=== PATIENT | male | born 1965 | race Caucasian/White ===

== ENCOUNTER → 2020-10-27 12:16 | Outpatient (CLI) | payer BC, SELFPAY ==
--- NOTE | ~2020-10-27 | CT_ITS ---
EXAMINATION: CT abdomen pelvis w con DATE: 10/27/2020 12:46 INDICATION: Bilateral flank pain. Low back pain. TECHNIQUE: Computed tomography (CT) of the abdomen and pelvis was performed with 100 mL Omnipaque 350 intravenous contrast. Automated exposure control and iterative reconstruction technique were employe d. The dose-length product was 865.34 mGy-cm. COMPARISON: None. FINDINGS: The visualized portions of the lung bases demonstrate a calcified nodule in right middle lo be, consistent with old granulomatous disease. No pleural effusion. The heart size is normal. No trey cardial effusion. The liver, gallbladder, spleen, pancreas, adrenal glands, and kidneys are normal. T he prostate is mildly enlarged. There are no dilated loops of bowel. The appendix is normal. There ar e no pathologically enlarged lymph nodes. There is no free intraperitoneal fluid. There is severe deg enerative disc disease at L4-L5. IMPRESSION: 1. Severe lumbar spondylosis. Reviewed, dictated and finalized at location A. CAD DRAFTSMAN
[2020-10-28 11:24] LABS: Estimated Glomerular Filt Rate > 60
== END ==
DX: M54.42 Lumbago with sciatica, left side (principal); M54.41 Lumbago with sciatica, right side; G89.29 Other chronic pain; M47.896 Other spondylosis, lumbar region
CPT/HCPCS: 74177; Q9967

== ENCOUNTER 2023-03-21 16:49 | Emergency (ER) | payer BC, SELFPAY ==
[2023-03-21 17:00] VITALS: BP 139/72; PULSE 88; RESP 18; TEMP 37.5; O2SAT 98
--- NOTE | 2023-03-21 17:25 | ED.URI ---
HPI - URI/Sore Throat General Chief Complaint: Upper Respiratory Infection Stated Complaint: cough Time Seen by Provider: 03/21/23 17:25 Source: patient, RN notes reviewed and old records reviewed Mode of arrival: ambulatory Limitations: no limitations History of Present Illness HPI Narrative: 58-year-old male presents to the [facility] with 2-3 weeks cough, chest congestion. Has taken [id number] products with no relief. Denies any fevers. No history of asthma or COPD. Has a history of hypertension Onset (ago): week(s) (2-3) Related Data Home Medications Medication Instructions Recorded Confirmed amlodipine 10 mg tablet 10 mg PO DAILY 03/21/23 03/21/23 lisinopril 20 1 tablet PO DAILY 03/21/23 03/21/23 mg-hydrochlorothiazide 12.5 mg tablet metoprolol succinate 25 mg 25 mg PO DAILY 03/21/23 03/21/23 tablet,extended release 24 hr Allergies Allergy/AdvReac Type Severity Reaction Status Date / Time doxycycline Allergy Other Verified 03/21/23 17:28 Review of Systems Review of Systems: All systems reviewed & are unremarkable except as noted in HPI and below Constitutional: Constitutional: Reports no additional constitutional complaints Eyes: Eyes: Reports no additional eye complaints ENT: Reports as per HPI Cardiovascular: Cardiovascular: Reports no additional cardiovascular complaints, Denies chest pain and Denies dyspnea Respiratory: Respiratory: Reports as per HPI, Reports chest congestion, Reports cough and Denies dyspnea Gastrointestinal: Gastrointestinal: Reports no additional gastrointestinal complaints, Denies abdominal pain, Denies nausea and Denies vomiting Musculoskeletal: Musculoskeletal: Reports no additional musculoskeletal complaints Integumentary/Breasts: Skin/Breast: Reports system reviewed and no additional complaints, except as docu Neurologic: Reports system reviewed and no additional complaints, except as documented Psychiatric: Psychiatric: Reports no additional psychiatric complaints Allergic/Immunologic: Allergic/Immunologic: Reports no additional allergic/immunologic complaints PMFSH Past Medical History Medical History Hypertension Comments At the time of my signature, I reviewed and agree with the nursing past medical, surgical, social, and family history. There is no relevant family history pertinent to the patient complaint. Exam Const: General: cooperative, healthy appearing, comfortable, no acute distress, well developed, alert and well nourished Nutritional Appearance: well nourished Orientation/consciousness: patient oriented x3 Limitations: no limitations HENMT: Head: normal to inspection Ears: hearing grossly normal bilaterally and external ears normal Face/Nose/Sinus: Normal external nose present, Normal nares present, Normal nasal mucous membranes and turbinates present and normal facial exam Face and sinus: normal facial exam Mouth: Yes Normal oral and palatal mucosa present, Yes lip normal and Yes moist mucous membranes Throat: posterior oropharynx normal and uvula midline Eyes: General: appearance normal, both eyes and all related structures Alignment and Position: alignment normal Periorbital: periorbital findings normal Conjunctivae: conjunctivae normal Pupils: Equal, round and reactive pupils present EOM: EOMs intact bilaterally Neck: Neck: normal visual inspection, full ROM, no lymphadenopathy and no meningeal signs Chest: Chest palpation & inspection: normal inspection of the chest Resp: Effort & Inspection: normal respiratory effort and able to speak in complete sentences Auscultation: no crackles, no rales, no rhonchi and wheezes expiratory wheezes (And expiratory bilateral lower) Cardio: Rate: regular rate Rhythm: regular rhythm Back/Spine/Pelvis: Cervical Spine: cervical ROM normal Thoracic/Lumbar Spine: No thoracic spinal tenderness Skin: General skin exam: normal color
== END 2023-03-21 17:38 | disposition home or self-care (01) ==
PROVIDERS: Emergency Provider Nurse Practitioner
DX: J40 Bronchitis, not specified as acute or chronic (principal); I10 Essential (primary) hypertension
CPT/HCPCS: 99213; G0463

== ENCOUNTER 2023-12-15 00:41 | Inpatient (IN) | payer BC, SELFPAY ==
[2023-12-15] VITALS (24 sets, daily range): BP systolic 114–161; BP diastolic 54–81; PULSE 96–115; RESP 15–25; TEMP 36.3–37.2; O2SAT 89–98
--- NOTE | ~2023-12-15 | XR_ITS ---
Clinical Indication: Cough PA and lateral views of the chest: Comparison: None Findings: Calcified right upper lobe and right lower lobe granulomas are present. The lungs are other milligan clear, without evidence of focal consolidation or pleural effusion. Cardiomediastinal silhouett e is within normal limits. Bones and soft tissues are unremarkable. Impression: No acute abnormality. Calcified granulomas. Reviewed, dictated and finalized at [facility]. [facility] Impression: No acute abnormality. Calcified granulomas.
--- NOTE | ~2023-12-15 | CT_ITS ---
EXAMINATION:CT diagnostic chest wo con DATE: 12/16/2023 15:34 INDICATION: Hypoxia. Eosinophilia. TECHNIQUE: Computed tomography (CT) of the chest was performed without intravenous contrast. Automate d exposure control and iterative reconstruction technique were employed. The dose-length product (DLP ) was 337.82 mGy-cm. COMPARISON: CT abdomen and pelvis 10/27/2020 FINDINGS: Calcified right lung nodules and calcified right hilar and mediastinal lymph nodes are cons istent with old granulomatous disease. There is mild atelectasis bilaterally. No pleural effusion. Th e heart size is normal. There are coronary artery calcifications. No pericardial effusion. There is b ilateral gynecomastia. There is mild thoracic spondylosis. IMPRESSION: 1. No etiology for the patient's symptoms. Reviewed, dictated and finalized at location A. ATION AND PATROL AGENT
--- NOTE | 2023-12-15 00:48 | ECG_ITS ---
Measurements Intervals [place] Rate: P: DC: QRS: QRSD: T: QT: QTc: Interpretive Statements SINUS TACHYCARDIA LOW-VOLTAGE QRS BORDERLINE ECG Electronically Signed On 12-16-2023 13:55:42 [employer] PRESIDENT [employer] by Ermias Crespo M.D.
[2023-12-15 01:04] LABS: Basophils Absolute Auto 0.2 K/mm3 (0.0-0.1); Basophils Percent Auto 1.4 % (0.2-1.2); Eosinophils Absolute Auto 1.3 K/mm3 (0-0.3); Eosinophils Percent Auto 8.9 % (0-4.4); Hematocrit 45.9 % (42.0-52.0); Hemoglobin 15.7 g/dL (14.0-18.0); Immature Granulocyte Absolute 0.13 K/mm3 (0.00-0.031); Immature Granulocyte Percent A 0.9 % (0-0.5); Lymphocytes Absolute Auto 3.82 K/mm3 (0.9-3.2); Lymphocytes Percent Auto 25.8 % (18.3-44.2); Mean Corpuscular HGB Conc 34.2 g/dl (32-36); Mean Corpuscular Hemoglobin 29.9 pg (26-34); Mean Corpuscular Volume 87.4 fl (80-100); Mean Platelet Volume 8.9 fl (7.4-10.4); Monocytes Absolute Auto 1.7 K/mm3 (0.1-0.6); Monocytes Percent Auto 11.4 % (2.6-8.5); Neutrophils Absolute Auto 7.6 K/mm3 (1.3-6.7); Neutrophils Percent Auto 51.6 % (45.5-73.1); Platelet Count Result 265 k/mm3 (150-375); Red Blood Count 5.25 M/mm3 (4.6-6.20); Red Cell Distribution Width 12.2 % (11.5-14.5); White Blood Count 14.8 K/mm3 (4.5-10.0)
[2023-12-15 01:19] LABS: Chloride 103 mmol/L (98-107); Potassium 3.3 mmol/L (3.4-5.0); Sodium 139 mmol/L (137-145)
[2023-12-15 01:20] LABS: Alanine Aminotransferase 38 U/L (6-50); Albumin Level 4.4 g/dL (3.5-5.1); Alkaline Phosphatase 70 U/L (38-126); Anion Gap 10 mmol/L (8-16); Aspartate Amino Transferase 27 U/L (17-59); Bilirubin,Total 1.1 mg/dL (0.2-1.3); Blood Urea Nitrogen 15 mg/dL (9-20); Calcium 9.8 mg/dL (8.4-10.2); Carbon Dioxide 26 mmol/L (22-30); Estimated CRCL calculation 81 ml/min; Estimated Glomerular Filt Rate > 60; Glucose 111 mg/dL (65-110)
[2023-12-15] MEDS: IPRATROPIUM BR 0.02% INH SOLN 0.5 MG/2.5 ML VIAL 1 MG INHALATION (02:28)
[2023-12-15] MEDS: ALBUTEROL SULFATE NEB 2.5 MG/3 ML INH 10 MG INHALATION (02:28)
[2023-12-15] MEDS: MAGNESIUM SULF 2 GM/WATER 50ML 2 GM/50 ML BAG IVPB (02:39)
[2023-12-15 03:02] LABS: NT Pro B Type Natriuretic Pept < 20 pg/mL (19.9-100)
[2023-12-15] MEDS: SODIUM CHLORIDE 0.9% IV 2,000 ML 999 ML IV CONT (03:06)
[2023-12-15] MEDS: KETOROLAC 15 MG/ML VIAL (*BKC) IV PUSH (03:07)
[2023-12-15] MEDS: guaiFENesin/DEXTROMETHORPHAN 10 ML UDC PO (03:07)
[2023-12-15] MEDS: ACETAMINOPHEN 500 MG TABLET 1000 MG PO (03:07)
--- NOTE | 2023-12-15 03:29 | ED.GENADULT ---
HPI - General Adult General Chief complaint: Shortness of Breath/Dyspnea Stated complaint: sob Time Seen by Provider: 12/15/23 01:34 History of Present Illness HPI narrative: This is a 58-year-old male presenting ED with a chief complaint of shortness of breath. Patient has had a dry cough for approximately 10 days. Over last 3 days it has gotten significantly worse. He is now having significant shortness of breath and wheezing. Patient has been having coughing fits during this time as well. no fevers chills chest pain body aches abdominal pain or urinary symptoms. No history of COPD. Used to be heavy smoker but quit 16 years ago. 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 Related Data Home Medications Medication Instructions Recorded Confirmed amlodipine 10 mg tablet 10 mg PO DAILY 03/21/23 12/15/23 lisinopril 20 1 tablet PO DAILY 03/21/23 12/15/23 mg-hydrochlorothiazide 12.5 mg tablet metoprolol succinate 25 mg 25 mg PO DAILY 03/21/23 12/15/23 tablet,extended release 24 hr pantoprazole 40 mg tablet,delayed mg PO 12/15/23 12/15/23 release Allergies Allergy/AdvReac Type Severity Reaction Status Date / Time doxycycline Allergy Unknown Hives Verified 12/15/23 03:45 [facility] Past Medical History Medical History Hypertension Exam Narrative: APPEARANCE: appears unwell Head: atraumatic. EYES: EOMI, NOSE: Atraumatic NECK: Trachea midline RESPIRATORY: Tachypneic, wheezing bilaterally, cough CARDIOVASCULAR: RRR, no peripheral edema ABDOMINAL: Non-distended MUSCULOSKELETAl: No obvious deformities NEURO: Alert. Moving 4/4 extremities SKIN:: Warm, dry. Normal color PSYCHIATRIC: Normal affect Course Vital Signs Vital signs: Vital Signs Temperature 97.8 F 12/15/23 00:40 Pulse Rate 109 H 12/15/23 00:40 Respiratory Rate 25 H 12/15/23 00:40 Blood Pressure 155/81 H 12/15/23 00:40 Pulse Oximetry 93 12/15/23 00:40 Oxygen Delivery Room Air 12/15/23 00:40 Temperature 97.8 F 12/15/23 00:40 Pulse Rate 108 H 12/15/23 04:09 Respiratory Rate 15 12/15/23 04:09 Blood Pressure 124/57 L 12/15/23 04:09 Pulse Oximetry 95 12/15/23 04:21 Oxygen Delivery Nasal Cannula 12/15/23 04:21 Oxygen Flow Rate 5 12/15/23 04:21 Medical Decision Making MDM Narrative Medical decision making narrative: -Course: 50-year-old male presenting with 10 days of cough that has gotten markedly worse over the last 3 days. He has diffuse wheezing on exam and is hypoxic on room air. Placed on 2 L [id number] given a breathing treatment magnesium and dexamethasone. White count elevated at 14.8. x-ray did not reveal any significant infiltrates but given his presentation and concern for secondary pneumonia. Patient be started on ceftriaxone and azithromycin. Patient will be admitted to the hospital for further management. 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 -Discussion of Management/Consultants: Vikash.-hospitalist -Interventions: DuoNeb treatment, steroids, magnesium, Toradol/Tylenol/ Robitussin, 40 mEq potassium ceftriaxone, azithromycin -Shared decision making / Disposition: admitted Vital Signs Vital Signs: Vital Signs Temperature 97.8 F 12/15/23 00:40 Pulse Rate 109 H 12/15/23 00:40 Respiratory Rate 25 H 12/15/23 00:40 Blood Pressure 155/81 H 12/15/23 00:40 Pulse Oximetry 93 12/15/23 00:40 Oxygen Delivery Room Air 12/15/23 00:40 Temperature 97.8 F 12/15/23 00:40 Pulse Rate 108 H 12/15/23 04:09 Respiratory Rate 15 12/15/23 04:09 Blood Pressure 124/57 L 12/15/23 04:09 Pu
[2023-12-15] MEDS: POTASSIUM CHLORIDE 20 MEQ PACKET (FOR LIQUID) 40 MEQ PO (03:51)
[2023-12-15 04:03] LABS: Influenza A QL RT-PCR Negative (Negative); Influenza B QL RT-PCR Negative (Negative); RSV RNA, RT-PCR Negative (Negative); SARS-CoV-2 RNA PCR Negative (Negative)
[2023-12-15] MEDS: AZITHROMYCIN 500 MG/NS 250 ML 500 MG/250 ML BAG 250 MG IVPB (05:09)
[2023-12-15] MEDS: methylPREDNISolone SOD SUCC 125 MG VIAL 60 MG IV PUSH ×4 (06:07→23:18)
[2023-12-15] MEDS: IPRATROPIUM 0.5 MG/ALBUTEROL SULFATE 2.5 MG AMPUL.NEB 3 ML INHALATION (07:45)
--- NOTE | 2023-12-15 08:44 | PM.IMHP ---
H&P: HPI History of Present Illness Date/Time: 12/15/23 08:44 Chief Complaint: Shortness of breath and cough Narrative: 58yo male with HTN here for shortness of breath and cough. Patient over the past 5 months has had 3 episodes of respiratory illnesses mostly with sinus drainage. He has been on antibiotics and steroids. Was also given albuterol MDI. He notices quick improvement with steroids. He does have a history of tobacco use smoking up to 3 packs per day for 25 years. He quit tobacco in 2007. He does not have history of asthma or COPD. Patient was doing well until about 10-11 days prior to this admission when he developed a cough that is mostly nonproductive. When it was productive, he would expectorate dark brown or banuelos colored sputum. No hemoptysis but he states he can taste blood?. He says it tastes ?salty? but not metallic. No fever or chills. No chest pain but he does have chest wall and abdominal pain from the persistent cough. He is having coughing jags with associated headache and post tussive dry heaving. No nausea. He has had decreased appetite. No diarrhea. No dysuria or hematuria. No pedal edema or calf pain. Not sure he has lost weight. He has been wheezing. He has tried humidity such as steam and hot showers. He did go to an urgent care center about 10 days ago and was treated with amoxicillin and Tessalon Perles. He has also been on Mucinex scheduled as well. There was only minimal benefit with this regimen. Today is his last day of amoxicillin. He has postnasal drainage but no sore throat, vision changes, hearing changes, ear pain, odynophagia or dysphagia. He has been feeling lethargic as well. Because of the worsening shortness of breath and cough, patient presented to the emergency room for evaluation. In the emergency room, was mildly tachycardic of 109 the respiratory 25. Was 93% on room air but dropped to 89%. He was treated with albuterol 10 mg neb, Atrovent and Decadron. He is also on magnesium. Blood cultures collected. Chest x-ray showed no acute abnormalities. White count was 15 K with eosinophilia. Potassium was low at 3.3 otherwise CMP was normal. BNP was less than 20. Influenza, RSV and COVID PCR were negative. He was started on antibiotics for possible pneumonia. He was switched to Solu-Medrol. He was admitted for further care. Review of Systems Review of Systems: All systems reviewed & are unremarkable except as noted in HPI and below PMFSH Past Medical History Medical History (Updated 12/15/23 @ 09:03 by Thomas Mcnamara MD) Hypertension Surgical History Surgical History (Updated 12/15/23 @ 08:56 by Thomas Mcnamara MD) Hx of percutaneous left heart catheterization Clear [facility] Jul 2020 Family History Family History (Updated 12/15/23 @ 08:57 by Thomas Mcnamara MD) Mother Brain aneurysm Breast cancer Cardiomyopathy Other Crohn disease Social History Social History (Updated 12/15/23 @ 08:58 by Thomas Mcnamara MD) Social History: 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 Lives at home with his . No pets. No exposure to birds. He rarely drinks alcohol. He does smoke marijuana a few times a year. He is a full code. He nominates his to be the individual to make medical decisions for him if he is unable. Meds Home Medications and Allergies Home Medications Medication Instructions Recorded Confirmed Type albuterol sulfate 90 mcg/actuation 2 puff inhalation QID PRN 03/21/23 Rx aerosol inhaler shortness of breath or wheezing #6.7 grams amlodipine 10 mg tablet 10 mg PO DAILY 03/21/23 12/15/23 History azithromycin 250 mg tablet See Rx Instructions PO .COMPLEX #6 03/21/23 Rx tabs inhalational spacing device (Space #1 ea 03/21/23 Rx Chamber) lisinopril 20 1 tablet PO DAILY 03/21/23 12/15/23 History mg-hydrochlorothiazide 12.5 mg tablet metoprolol succinate 25 mg 25 mg PO DAILY 03/21/23 12/15/23 Hist
--- NOTE | 2023-12-15 08:50 | ADMGEN ---
This patient, Ermias Lopez, was admitted to [facility] Surg Room 314-02. Patient/family oriented to hospital policies and general routines including ID bracelet, bed and alarms, visiting hours, pain management, procedures, bathroom and other care routines, personal items, smoking policy, room service/diet, and visiting hours. Information on how to activate the Rapid Response Team has been discussed. Patient/Family are encouraged to report perceived risks to care and to ask questions if they do not understand what they are told or what they should do.
[2023-12-15] MEDS: dilTIAZem HCL 30 MG TABLET PO ×3 (12:50→23:18)
[2023-12-15] MEDS: ASPIRIN 81 MG ENTERIC TABLET PO (12:57)
[2023-12-15] MEDS: polyethylene glycoL 3350 17 GM POWD.PACK PO (19:00)
[2023-12-15] MEDS: LEVALBUTEROL NEB 1.25 MG/3 ML INHALATION (22:02)
[2023-12-16] VITALS (18 sets, daily range): BP systolic 138–171; BP diastolic 59–81; PULSE 82–111; RESP 16–20; TEMP 36.4–37.2; O2SAT 91–97
[2023-12-16] MEDS: AZITHROMYCIN 500 MG/NS 250 ML 500 MG/250 ML BAG 250 MG IVPB (05:35)
[2023-12-16] MEDS: dilTIAZem HCL 30 MG TABLET PO ×2 (05:36→11:57)
[2023-12-16] MEDS: methylPREDNISolone SOD SUCC 125 MG VIAL 60 MG IV PUSH (05:36)
[2023-12-16 06:44] LABS: Basophils Absolute Auto 0.1 K/mm3 (0.0-0.1); Basophils Percent Auto 0.3 % (0.2-1.2); Eosinophils Percent Auto 0.1 % (0-4.4); Hematocrit 41.6 % (42.0-52.0); Hemoglobin 14.3 g/dL (14.0-18.0); Immature Granulocyte Absolute 0.31 K/mm3 (0.00-0.031); Immature Granulocyte Percent A 1.3 % (0-0.5); Lymphocytes Absolute Auto 2.14 K/mm3 (0.9-3.2); Lymphocytes Percent Auto 8.6 % (18.3-44.2); Mean Corpuscular HGB Conc 34.4 g/dl (32-36); Mean Corpuscular Hemoglobin 30.4 pg (26-34); Mean Corpuscular Volume 88.5 fl (80-100); Mean Platelet Volume 8.9 fl (7.4-10.4); Monocytes Absolute Auto 0.9 K/mm3 (0.1-0.6); Monocytes Percent Auto 3.8 % (2.6-8.5); Neutrophils Absolute Auto 21.3 K/mm3 (1.3-6.7); Neutrophils Percent Auto 85.9 % (45.5-73.1); Platelet Count Result 253 k/mm3 (150-375); Red Cell Distribution Width 12.4 % (11.5-14.5); White Blood Count 24.8 K/mm3 (4.5-10.0)
[2023-12-16 06:52] LABS: Anion Gap 9 mmol/L (8-16); Blood Urea Nitrogen 12 mg/dL (9-20); Carbon Dioxide 24 mmol/L (22-30); Chloride 107 mmol/L (98-107); Estimated CRCL calculation 102 ml/min; Estimated Glomerular Filt Rate > 60; Glucose 147 mg/dL (65-110); Magnesium 2.6 mg/dL (1.6-2.3); Potassium 4.2 mmol/L (3.4-5.0); Sodium 140 mmol/L (137-145)
[2023-12-16] MEDS: LEVALBUTEROL NEB 1.25 MG/3 ML INHALATION ×3 (09:14→20:07)
[2023-12-16] MEDS: ASPIRIN 81 MG ENTERIC TABLET PO (09:16)
[2023-12-16] MEDS: polyethylene glycoL 3350 17 GM POWD.PACK PO (09:16)
--- NOTE | 2023-12-16 10:46 | ECHO_ITS ---
Patient Info Name: Ermias Lopez Age: 58 years : 1965 Gender: Male Ht: 65 in Wt: 199 lbs BSA: 2.07 m2 HR: 95 bpm BP: 138 / 73 mmHg Heart Rhythm: Sinus Rhythm Technical Quality: Fair Exam Date: 12/16/2023 1:21 PM Exam Location: Echo Lab Patient Status: Inpatient Admit Date: 12/15/2023 Staff Ordering Physician: Ermias Santiago MD General Agent: Leonarda Cruz RDCS Attending Provider: Raisa Suh MD Referring Physician: Jack GONZALEZ; Exam Type: CA echo doppler color flow Study Info Indications R06.02 - Shortness of breath Complete two-dimensional, color flow and Doppler transthoracic echocardiogram is performed. Summary 1. Complete two-dimensional, color flow and Doppler transthoracic echocardiogram is performed. 2. Left ventricular chamber dimension is normal. 3. Left ventricular systolic function is hyperdynamic, estimated at >70%. 4. The left ventricular diastolic function is abnormal. 5. E/e' 11 is mildly elevated. 6. There is trace tricuspid valve regurgitation. 7. No pulmonary hypertension, estimated pulmonary arterial systolic pressure is 29 mmHg. Left Ventricle E/e' 11 is mildly elevated. Left ventricular chamber dimension is normal. Left ventricular systolic function is hyperdynamic, estimated at >70%. The left ventricular diastolic function is abnormal. Right Ventricle Right ventricular systolic function is normal and with normal TAPSE 2.9 cm. Right ventricular chamber dimension is normal. Left Atria Left atrial chamber dimension is normal. Right Atria Right atrial chamber dimension is normal. Aortic Valve The aortic valve is trileaflet. There is no aortic valve stenosis. There is no aortic valve regurgitation. Pulmonic Valve There is no pulmonic regurgitation. Mitral Valve There is no mitral valve stenosis. There is no mitral valve regurgitation. Tricuspid Valve There is trace tricuspid valve regurgitation. No pulmonary hypertension, estimated pulmonary arterial systolic pressure is 29 mmHg. Pericardium/Pleural There is no pericardial effusion. Inferior Vena Cava Normal inferior vena cava with >50% collapse upon inspiration consistent with normal right atrial pressure, 5 mmHg. Aorta The aortic root size at the sinus of Valsalva is normal. Left Ventricular Outflow Tract Name Value Normal LVOT 2D LVOT Diameter 2.0 cm LVOT Doppler LVOT Peak Gradient 8 mmHg LVOT Mean Gradient 4 mmHg LVOT VTI 24 cm LVOT VTI/AV VTI Ratio 0.8 LVOT Stroke Volume 75 ml LVOT CO 17.7 l/min LVOT CI 8.6 l/min/m2 Pulmonic Valve Name Value Normal RVOT Doppler RVOT Peak Gradient 6 mmHg PV Doppler PV Peak
--- NOTE | 2023-12-16 11:13 | PM.CNPUL ---
Assessment and Plan Assessment and plan (1) Reactive airway disease with acute exacerbation: Code(s): J45.901 - Unspecified asthma with (acute) exacerbation Status: Acute Assessment and Plan: Patient has a 75 pack year tobacco use, quit in 2008, respiratory illnesses associated with fatigue, cough, sputum production, shortness of breath in September, 12 and this episode currently. Episodes have responded to antibiotics and steroids and he makes a near complete recovery between these episodes. Admitted now with hypoxia requiring up to 5 L nasal cannula, clear chest x-ray, eosinophil count of 1326 per micro L, and is 50% back to normal after 36 hours of steroids, 1 dose of ceftriaxone and azithromycin. His D-dimer is negative. COVID, influenza and RSV RT PCR studies are negative. Etiology of patient's recurrent episodes include asthma, reactive airways disease, COPD, viral bronchiolitis, bronchiectasis, and or eosinophilic lung disease. Doubt cardiac abnormalities Plan: I will obtain a CT scan of the chest without contrast looking for evidence of emphysema, bronchiectasis or eosinophilic lung disease. I will order an extended respiratory pathogen panel. Patient has previously had a cardiac workup that he tells me is negative. I will obtain an echocardiogram to assess LV function, RV function, pulmonary pressures and valvular function. I will decrease his Solu-Medrol to 20 mg IV q.6. The patient tells me that levalbuterol 1.2 5q6 has helped him and I will continue this. Agree with azithromycin pending cultures, day 2. Serum Aspergillus serologies have been sent and I will order immunoglobulins and total IgE level The patient does have loud snoring, hypertension, fatigue and may have obstructive sleep apnea. I will order an overnight oximetry to assess his oxygen at night. He will need an outpatient sleep study. Discussed with Dr. Mcnamara, will follow with you. History of Present Illness History of Present Illness Consult date: 12/16/23 Chief complaint: Resp Failure Narrative: 12/16/2023: This is a new pulmonary consult for hypoxemia and eosinophilia. 58-year-old with a history of hypertension and recurrent bouts of bronchitis. Patient had no respiratory limitations in his life until July of 2020 when he developed fatigue at work with shortness of breath and had a cardiac workup with a negative cardiac catheterization. He was started on no medicines at that time. He says his shortness of breath improved but he remained fatigue since then. 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 He would then lift weights and then walk 2 miles an hour. He had no respiratory limitations in his activities of daily living. In June the patient developed fatigue, cough, banuelos sputum and shortness of breath. He went to an urgent care and was treated with erythromycin over the next 7 days he recovered to 95% back to his normal expected except for feeling fatigued. The patient recovered and went back to work and he retired on August 14, 2023. In September of 2023 he developed fatigue, cough, sputum production and shortness of breath and he went to urgent care and received a Z-Ephraim and steroids. He again made a complete recovery over the next week and was back to his baseline except for fatigue. On 11/02/2023 he developed cough, shortness of breath, phlegm production with continued fatigue. He got no medical treatment. His tested COVID positive on 11/12 and at that time he tested COVID negative. He does not know if he had COVID initially. Patient was in his usual state of health until December 03 2023 when he developed cough, dark banuelos phlegm, rest and exertional shortness of breath. He denied fever, chills, rigors. On 12/06/2023 he went to Urgent Care a
[2023-12-16] MEDS: methylPREDNISolone SOD SUCC 40 MG VIAL 20 MG IV PUSH ×2 (11:57→18:32)
--- NOTE | 2023-12-16 12:35 | PM.IMPN ---
Progress Note: A&P Assessment and Plan (1) Hypoxia: Code(s): R09.02 - Hypoxemia Status: Acute Assessment and Plan: Patient presents to the ED complaints of shortness of breath and cough. Not hypoxic initially on admission but developed hypoxia probably related to V/Q mismatch after nebulizer treatments. CXR clear. 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 His symptoms appear to have started sometime in the fall. He does have eosinophilia which would suggest that he has developed asthma type disorder. Tachycardia noted on admission but probably persistent because of his albuterol treatment. Hypoxia much better. Continue steroids and nebulizer treatments. Pulm consult and appreciate their input. Discussed Echo and CT chest ordered. (2) Reactive airway disease with acute exacerbation: Code(s): J45.901 - Unspecified asthma with (acute) exacerbation Status: Acute Assessment and Plan: As above. Patient with possible asthma/COPD overlap syndrome. Doubtful he has pneumonia given that he was on amoxicillin for almost 10 days prior to admission and chest x-ray is clear. Rocephin stopped but azithromycin continued to cover for atypicals. WBC 14.8K but higher now at 24.8K felt related to steroids. Continue nebulizer treatments and steroids. (3) Eosinophilia: Code(s): D72.10 - Eosinophilia, unspecified Status: Acute Assessment and Plan: Eosinophil count was 1300. Again most likely related to new onset asthma. Consider eosinophilic PNA but no infiltrates by CXR Patient was started on steroids. Check for ABPA. Check IgE level. CT of chest ordered. Check for pertussis. Eosinophilia has resolved as expected and symptoms much better Most likely need home maintenance inhalers at discharge. (4) Hypertension: Code(s): I10 - Essential (primary) hypertension Status: Acute Assessment and Plan: Patient with HTN. Reviewed home medications He is on a beta-aramis which could be contributing to his worsening asthmatic symptoms so held. Lisinopril can also cause chronic cough so also held. Started diltiazem and tolerating this well and BP stable. Follow Plan DVT prophylaxis -Lovenox Code status -full Subjective Date/time seen: 12/16/23 12:35 Interval history: 58yo male with HTN here for shortness of breath and cough.?? Patient weaned off O2 today. He feels much better. Cough better. No Cp. Exam Narrative: AF 97.5 138/73 95 20 97% 3L (on RA at the time of my visit) Gen - NARD walking around the room Chest - few faint scattered rhonchi, nml RR CV - RRR. S1-S2. Tele showing no significant dysrhythmias Abd - soft, NT/ND, +BS Ext - no pedal edema Psych - normal mood and affect. Skin - warm and dry. Objective Data Vital Signs Vital Signs: Vital Signs - 24 hr 12/15/23 13:10 12/15/23 13:20 12/15/23 15:41 Temperature Pulse Rate 106 H 100 Respiratory Rate 18 18 Blood Pressure Pulse Oximetry 94 Oxygen Delivery Nasal Cannula Oxygen Flow Rate 5 12/15/23 17:53 12/15/23 16:00 12/15/23 21:23 Temperature 98.9 F 98.1 F Pulse Rate 110 H 114 H 109 H Respiratory Rate 17 20 Blood Pressure 152/68 H 161/74 H Pulse Oximetry 96 97 Oxygen Delivery Oxygen Flow Rate 12/15/23 22:02 12/15/23 20:00 12/16/23 00:00 Temperature Pulse Rate 97 103 H 100 Respiratory Rate 18 Blood Pressure Pulse Oximetry Oxygen Delivery Oxygen Flow Rate 12/15/23 20:00 12/16/23 04:00 12/16/23 06:22 Temperature Pulse Rate 100 88 88 Respiratory Rate 18 18 Blood Pressure Pulse Oximetry 97 97 Oxygen Delivery Nasal Cannula Nasal Cannula Oxygen Flow Rate 5 5 12/16/23 06:29 12/16/23 09:14 12/16/23 09:16 Temperature 97.5 F L Pulse Rate 92 95 Respiratory Rate 18 20 Blood Pressure 138/73 Pulse Oximetry 91 97 Oxygen Delivery Nasal Girish
[2023-12-16 12:50] LABS: Procalcitonin 0.1 ng/mL
[2023-12-16] MEDS: ACETAMINOPHEN 325 MG TABLET 650 MG PO (15:18)
[2023-12-16] MEDS: dilTIAZem HCL 60 MG TABLET PO (19:52)
[2023-12-17] VITALS (11 sets, daily range): BP systolic 130–153; BP diastolic 72–77; PULSE 90–98; RESP 16–20; TEMP 36.2–36.6; O2SAT 90–100
[2023-12-17] MEDS: dilTIAZem HCL 60 MG TABLET PO ×2 (01:40→06:23)
[2023-12-17] MEDS: methylPREDNISolone SOD SUCC 40 MG VIAL 20 MG IV PUSH ×2 (01:40→06:23)
[2023-12-17] MEDS: AZITHROMYCIN 500 MG/NS 250 ML 500 MG/250 ML BAG 250 MG IVPB (05:11)
[2023-12-17 07:23] LABS: Basophils Absolute Auto 0.1 K/mm3 (0.0-0.1); Basophils Percent Auto 0.2 % (0.2-1.2); Hematocrit 42.9 % (42.0-52.0); Hemoglobin 14.4 g/dL (14.0-18.0); Immature Granulocyte Absolute 0.61 K/mm3 (0.00-0.031); Immature Granulocyte Percent A 2.4 % (0-0.5); Lymphocytes Absolute Auto 1.49 K/mm3 (0.9-3.2); Lymphocytes Percent Auto 5.8 % (18.3-44.2); Mean Corpuscular HGB Conc 33.6 g/dl (32-36); Mean Corpuscular Hemoglobin 30.4 pg (26-34); Mean Corpuscular Volume 90.7 fl (80-100); Mean Platelet Volume 9.4 fl (7.4-10.4); Monocytes Absolute Auto 1.1 K/mm3 (0.1-0.6); Monocytes Percent Auto 4.4 % (2.6-8.5); Neutrophils Absolute Auto 22.6 K/mm3 (1.3-6.7); Neutrophils Percent Auto 87.2 % (45.5-73.1); Platelet Count Result 269 k/mm3 (150-375); Red Blood Count 4.73 M/mm3 (4.6-6.20); Red Cell Distribution Width 12.7 % (11.5-14.5); White Blood Count 25.9 K/mm3 (4.5-10.0)
[2023-12-17 07:31] LABS: Immunoglobulin A 284 mg/dL (70-400); Immunoglobulin G 758 mg/dL (700-1600); Immunoglobulin M 81 mg/dL (40-230)
[2023-12-17] MEDS: LEVALBUTEROL NEB 1.25 MG/3 ML INHALATION ×3 (07:37→20:10)
[2023-12-17] MEDS: dilTIAZem HCL CD 240 MG CAP.24HR PO (08:48)
[2023-12-17] MEDS: ASPIRIN 81 MG ENTERIC TABLET PO (08:48)
[2023-12-17] MEDS: LOSARTAN POTASSIUM 25 MG TABLET PO (08:48)
[2023-12-17] MEDS: polyethylene glycoL 3350 17 GM POWD.PACK PO (08:48)
[2023-12-17] MEDS: ACETAMINOPHEN 325 MG TABLET 650 MG PO ×2 (08:48→17:41)
--- NOTE | 2023-12-17 10:58 | PM.PNPUL ---
Progress Note: A&P Assessment and Plan (1) Reactive airway disease with acute exacerbation: Code(s): J45.901 - Unspecified asthma with (acute) exacerbation Status: Acute Assessment and Plan: Patient has a 75 pack year tobacco use, quit in 2008, respiratory illnesses associated with fatigue, cough, sputum production, shortness of breath in September, 12 and this episode currently. Episodes have responded to antibiotics and steroids and he makes a near complete recovery between these episodes. Admitted now with hypoxia requiring up to 5 L nasal cannula, clear chest x-ray, eosinophil count of 1326 per micro L, and is 50% back to normal after 36 hours of steroids, 1 dose of ceftriaxone and azithromycin. His D-dimer is negative. COVID, influenza and RSV RT PCR studies are negative. Etiology of patient's recurrent episodes include asthma, reactive airways disease, COPD, viral bronchiolitis, bronchiectasis, and or eosinophilic lung disease. Doubt cardiac abnormalities Plan: I will obtain a CT scan of the chest without contrast looking for evidence of emphysema, bronchiectasis or eosinophilic lung disease. I will order an extended respiratory pathogen panel. Patient has previously had a cardiac workup that he tells me is negative. I will obtain an echocardiogram to assess LV function, RV function, pulmonary pressures and valvular function. I will decrease his Solu-Medrol to 20 mg IV q.6. The patient tells me that levalbuterol 1.2 5q6 has helped him and I will continue this. Agree with azithromycin pending cultures, day 2. Serum Aspergillus serologies have been sent and I will order immunoglobulins and total IgE level The patient does have loud snoring, hypertension, fatigue and may have obstructive sleep apnea. I will order an overnight oximetry to assess his oxygen at night. He will need an outpatient sleep study. Later in the day a CT scan of the chest which was normal and with no evidence of interstitial lung disease, ground-glass infiltrates, consolidations, masses or pleural disease. Echocardiogram demonstrated diastolic dysfunction with a normal EF of greater than 70, trace tricuspid regurg with a PASP of 29, normal right ventricular size and function, normal right atrial size. 12/17/2023: Patient states he feels his cough is a little worse than yesterday, he is coughing up dark sputum but no blood. He remains with dyspnea on exertion and he slept poorly. Feels a little worse than yesterday. Patient had an overnight oximetry on room air with recording duration 7 hours and 52 minutes. Average saturation 88%. Low saturation 77%. time with saturations less than or equal to 88% was 329 minutes. Oxygen desaturation index was 4.6. White blood cell count 25.9, eosinophils 0%. Plan: No wheezing on exam today. I will switch to prednisone 50 mg p.o. q.day. I will start trelegy 200-62.5 -25 at 1 puff q.day. continue azithromycin, day 3. I will perform an overnight oximetry on 2 L tonight. If he remains clinically stable can discharge on 12/18/2023 on these pulmonary medications: Prednisone 50 mg p.o. q.day X 2 days Azithromycin 250 mg p.o. q.day x2 days Trelegy 200-60 2.5-25 at 1 puff q.day Rescue albuterol 2 puffs q.4 hours p.r.n. shortness of breath or wheezing Oxygen at rest and with ambulation per formal home O2 assessment Oxygen at night on a minimum of 2 nights and will be adjusted after overnight oximetry tonight. Follow-up in the Pulmonary Clinic in 3-[address] Mcnamara, will follow with you. Subjective Date/time seen: 12/17/23 10:58 Interval history: 12/16/2023:? This is a new pulmonary consult for hypoxemia and eosinophilia. 58-year-old with a history of hypertension and recurrent bouts of bronchitis. Patient had no respiratory limitations in his life until July of 2020 when he developed fatigue at work with shortness of breath and had a cardiac workup with a negative cardia
[2023-12-17] MEDS: predniSONE 10 MG TABLET 50 MG PO (13:02)
[2023-12-17] MEDS: FLUTICASONE/UMECLIDIN/VILANTER 200-62.5-25 MCG ELLIPTA 1 PUFF INHALATION (13:26)
--- NOTE | 2023-12-17 16:49 | PM.IMPN ---
Progress Note: A&P Assessment and Plan (1) Hypoxia: Code(s): R09.02 - Hypoxemia Status: Acute Assessment and Plan: Patient presents to the ED complaints of shortness of breath and cough. Not hypoxic initially on admission but developed hypoxia probably related to V/Q mismatch after nebulizer treatments. CXR clear. 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 His symptoms appear to have started sometime in the fall. He does have eosinophilia which would suggest that he has developed asthma type disorder. Tachycardia noted on admission but probably persistent because of his albuterol treatment. Tachycardia has resolved Echo showing EF>70% with diastolic dysfunction. CT chest - no acute findings. Hypoxia resolved. Solu-Medrol changed to Prednisone Continue steroids and nebulizer treatments. Pulm consult and appreciate their input. Discussed with Pulm Apnea link ordered. (2) Reactive airway disease with acute exacerbation: Code(s): J45.901 - Unspecified asthma with (acute) exacerbation Status: Acute Assessment and Plan: As above. Patient with possible asthma/COPD overlap syndrome. Doubtful he has pneumonia given that he was on amoxicillin for almost 10 days prior to admission and chest x-ray is clear. Rocephin stopped but azithromycin continued to cover for atypicals. WBC 14.8K but higher now at 26K felt related to steroids. Continue nebulizer treatments and steroids. (3) Eosinophilia: Code(s): D72.10 - Eosinophilia, unspecified Status: Acute Assessment and Plan: Eosinophil count was 1300. Again most likely related to new onset asthma. Consider eosinophilic PNA but no infiltrates by CXR Patient was started on steroids. ABPA and IgE level ordered. Check for pertussis given the severity of the cough. Eosinophilia has resolved as expected with steroids and symptoms much better Most likely need home maintenance inhalers at discharge. (4) Hypertension: Code(s): I10 - Essential (primary) hypertension Status: Acute Assessment and Plan: Patient with HTN. Reviewed home medications He is on a beta-aramis which could be contributing to his worsening asthmatic symptoms so held. Lisinopril can also cause chronic cough so also held. Started diltiazem and tolerating this well. Losartan added. Follow Plan DVT prophylaxis -Lovenox Code status -full Disposition - home tomorrow Subjective Date/time seen: 12/17/23 16:49 Interval history: 58yo male with HTN here for shortness of breath and cough.?? Cough spell earlier today. Not feeling well. No CP. Exam Narrative: AF 97.7 143/75 91 20 92% RA Gen - NARD Chest - distant scattered rhonchi, nml RR CV - RRR. S1-S2 Abd - soft, NT/ND, +BS Ext - no pedal edema Psych - normal mood and affect. Skin - warm and dry. Objective Data Vital Signs Vital Signs: Vital Signs - 24 hr 12/16/23 18:20 12/16/23 20:07 12/16/23 20:07 Temperature 98.9 F Pulse Rate 108 H 98 Respiratory Rate 16 20 Blood Pressure 171/75 H Pulse Oximetry 95 95 Oxygen Delivery Room Air Fraction of Inspired Oxygen 12/16/23 20:20 12/16/23 21:25 12/16/23 21:25 Temperature Pulse Rate 101 H 101 H Respiratory Rate 20 Blood Pressure 146/60 H Pulse Oximetry 93 93 Oxygen Delivery Room Air Fraction of Inspired Oxygen 12/17/23 00:08 12/17/23 06:00 12/17/23 07:37 Temperature 97.1 F L 97.8 F Pulse Rate 97 93 Respiratory Rate 16 18 Blood Pressure 153/72 H 142/77 H Pulse Oximetry 92 90 92 Oxygen Delivery Room Air Fraction of Inspired Oxygen 21 12/17/23 07:37 12/17/23 07:43 12/17/23 11:20 Temperature Pulse Rate 90 95 92 Respiratory Rate 20 20 Blood Pressure 130/74 Pulse Oximetry 94 Oxygen Delivery Fraction of Inspired Oxygen 12/17/23 08:50 12/17/23 13:24 12/17/23 13:24 Temperature Pulse R
--- NOTE | 2023-12-17 17:13 | PC.NURSE ---
Pt's family (granddaughter) refused dinner blood sugar check. She also requested to discontinue blood sugar checks. This RN notified MD; MD stated we are unable to discontinue the order. Family notified.
[2023-12-17] MEDS: ENOXAPARIN 40 MG/0.4 ML SYRINGE SUB-Q (17:35)
[2023-12-18 06:00] VITALS: BP 136/75; PULSE 82; RESP 16; TEMP 36.6; O2SAT 93
--- NOTE | 2023-12-18 07:21 | PM.PNPUL ---
Progress Note: A&P Assessment and Plan (1) Reactive airway disease with acute exacerbation: Code(s): J45.901 - Unspecified asthma with (acute) exacerbation Status: Acute Assessment and Plan: Patient has a 75 pack year tobacco use, quit in 2008, respiratory illnesses associated with fatigue, cough, sputum production, shortness of breath in September, 12 and this episode currently. Episodes have responded to antibiotics and steroids and he makes a near complete recovery between these episodes. Admitted now with hypoxia requiring up to 5 L nasal cannula, clear chest x-ray, eosinophil count of 1326 per micro L, and is 50% back to normal after 36 hours of steroids, 1 dose of ceftriaxone and azithromycin. His D-dimer is negative. COVID, influenza and RSV RT PCR studies are negative. Etiology of patient's recurrent episodes include asthma, reactive airways disease, COPD, viral bronchiolitis, bronchiectasis, and or eosinophilic lung disease. Doubt cardiac abnormalities Plan: I will obtain a CT scan of the chest without contrast looking for evidence of emphysema, bronchiectasis or eosinophilic lung disease. I will order an extended respiratory pathogen panel. Patient has previously had a cardiac workup that he tells me is negative. I will obtain an echocardiogram to assess LV function, RV function, pulmonary pressures and valvular function. I will decrease his Solu-Medrol to 20 mg IV q.6. The patient tells me that levalbuterol 1.2 5q6 has helped him and I will continue this. Agree with azithromycin pending cultures, day 2. Serum Aspergillus serologies have been sent and I will order immunoglobulins and total IgE level The patient does have loud snoring, hypertension, fatigue and may have obstructive sleep apnea. I will order an overnight oximetry to assess his oxygen at night. He will need an outpatient sleep study. Later in the day a CT scan of the chest which was normal and with no evidence of interstitial lung disease, ground-glass infiltrates, consolidations, masses or pleural disease. Echocardiogram demonstrated diastolic dysfunction with a normal EF of greater than 70, trace tricuspid regurg with a PASP of 29, normal right ventricular size and function, normal right atrial size. 12/17/2023: Patient states he feels his cough is a little worse than yesterday, he is coughing up dark sputum but no blood. He remains with dyspnea on exertion and he slept poorly. Feels a little worse than yesterday. Patient had an overnight oximetry on room air with recording duration 7 hours and 52 minutes. Average saturation 88%. Low saturation 77%. time with saturations less than or equal to 88% was 329 minutes. Oxygen desaturation index was 4.6. White blood cell count 25.9, eosinophils 0%. Plan: No wheezing on exam today. I will switch to prednisone 50 mg p.o. q.day. I will start trelegy 200-62.5 -25 at 1 puff q.day. continue azithromycin, day 3. I will perform an overnight oximetry on 2 L tonight. 12/18/23: Patient says he slept last night for 4 hours. Overall he is breathing is improved. He has a cough with minimal phlegm. He is afebrile. Room air saturations 93%. Patient had an overnight oximetry on 2 L nasal cannula with recording duration 6 hours and 15 minutes, average saturation 93%. Low saturation 85%, time with saturation less than or equal to 88% was 2 minutes, oxygen desaturation index 5.3. Plan: can discharge from a pulmonary perspective on these pulmonary medications: Prednisone 50 mg p.o. q.day X 2 days Azithromycin 250 mg p.o. q.day x2 days Trelegy 200-60 2.5-25 at 1 puff q.day Rescue albuterol 2 puffs q.4 hours p.r.n. shortness of breath or wheezing Oxygen at rest and with ambulation per formal home O2 assessment which I have ordered today Oxygen when naps and at night 2 L. Follow-up in the Pulmonary Clinic in 3-4 weeks. 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 Will need outpatient PFTs and a sp
[2023-12-18 07:34] LABS: Basophils Absolute Auto 0.1 K/mm3 (0.0-0.1); Basophils Percent Auto 0.4 % (0.2-1.2); Hematocrit 43.1 % (42.0-52.0); Hemoglobin 14.5 g/dL (14.0-18.0); Immature Granulocyte Absolute 0.45 K/mm3 (0.00-0.031); Immature Granulocyte Percent A 2.4 % (0-0.5); Lymphocytes Absolute Auto 2.48 K/mm3 (0.9-3.2); Mean Corpuscular HGB Conc 33.6 g/dl (32-36); Mean Corpuscular Hemoglobin 30.5 pg (26-34); Mean Corpuscular Volume 90.7 fl (80-100); Mean Platelet Volume 9.6 fl (7.4-10.4); Monocytes Percent Auto 10.4 % (2.6-8.5); Neutrophils Percent Auto 73.8 % (45.5-73.1); Platelet Count Result 252 k/mm3 (150-375); Red Blood Count 4.75 M/mm3 (4.6-6.20); Red Cell Distribution Width 12.6 % (11.5-14.5)
[2023-12-18] MEDS: ACETAMINOPHEN 325 MG TABLET 650 MG PO (09:29)
[2023-12-18] MEDS: polyethylene glycoL 3350 17 GM POWD.PACK PO (09:29)
[2023-12-18] MEDS: FLUTICASONE/UMECLIDIN/VILANTER 200-62.5-25 MCG ELLIPTA 1 PUFF INHALATION (09:29)
[2023-12-18] MEDS: LOSARTAN POTASSIUM 25 MG TABLET PO (09:30)
[2023-12-18] MEDS: AZITHROMYCIN 250 MG TABLET PO (09:30)
[2023-12-18] MEDS: ASPIRIN 81 MG ENTERIC TABLET PO (09:30)
[2023-12-18] MEDS: ENOXAPARIN 40 MG/0.4 ML SYRINGE SUB-Q (09:30)
[2023-12-18] MEDS: predniSONE 10 MG TABLET 50 MG PO (09:30)
[2023-12-18] MEDS: dilTIAZem HCL CD 240 MG CAP.24HR PO (09:30)
[2023-12-18 09:35] VITALS: PULSE 100; O2SAT 96
[2023-12-18 09:37] VITALS: PULSE 95; O2SAT 97
[2023-12-18 09:47] VITALS: PULSE 100; RESP 18; O2SAT 96
--- NOTE | 2023-12-18 10:07 | HOMEO2EVAL ---
Evaluation was performed at [facility] Home Oxygen Evaluation RC: Home Oxygen (O2) Evaluation Start: 12/18/23 07:21 Freq: ONCE Status: Active Protocol: RPE Activity Type Activity Date Activity User E-sign Co-sign Detail Recorded Client Recorded Date Recorded By Document 12/18/23 09:35 KAFlako [id number] 12/18/23 09:45 KAG Document 12/18/23 09:37 KAG [id number] 12/18/23 09:46 KAG 12/18/23 12/18/23 09:35 09:37 Home O2 Evaluation [Oxygen] -Test Phase Resting Exercise -Oxygen Delivery Room Air Room Air [Pulse Oximetry] -Pulse Oximetry (90-100 %) 96 97 [Pulse Rate] -Pulse Rate (60-100 beats/min) 100 95 [Evaluation] -Activity Tolerance Excellent [Exercise] -Ambulation Distance (feet) 40 -Ambulation Distance (meters) 12.19 [Comments] -Home Oxygen Evaluation Comments Pt tolerated ambulation excellent on room air. Maintained SpO2 levels at all times. [Charges] -Evaluation Charges O2 Evaluation by JOSE ALEJANDRO
--- NOTE | 2023-12-18 10:13 | PCRCNOTE ---
Patient was evaluated for home O2 for daytime and with exercise, patient does not need oxygen at this time with daily activities. Patient was able to maintain SpO2 levels above 90% and tolerated well. Patient did have 2 apnea links for night time, patient had low SpO2 levels at night time and will require 2L nasal cannula at night to maintain SpO2 levels. RN informed of patient's oxygen needs before discharge home.
--- NOTE | 2023-12-18 11:45 | PM.DS ---
DS: Admitting Diagnosis Discharge Date 12/18/23 Admitting Diagnosis Shortness of breath DS: Discharge Diagnosis Discharge Diagnosis (1) Hypoxia: Code(s): R09.02 - Hypoxemia Status: Acute (2) Reactive airway disease with acute exacerbation: Code(s): J45.901 - Unspecified asthma with (acute) exacerbation Status: Acute (3) Eosinophilia: Code(s): D72.10 - Eosinophilia, unspecified Status: Acute (4) Hypertension: Code(s): I10 - Essential (primary) hypertension Status: Acute DS: Summary Hospital Course Reason for hospitalization: 58yo male with HTN here for shortness of breath and cough.??Please see H&P for details. Hospital Course: Patient presents to the ED complaints of shortness of breath and cough. He was not hypoxic initially on admission but developed hypoxia probably related to V/Q mismatch after nebulizer treatments.? CXR was clear. Influenza/RSV/COVID PCR negative. His symptoms appear to have started sometime in the fall and now with acute flare.?He did have eosinophilia which would suggest that he has developed asthma type disorder.? Eosinophil count was 1300.? Consider eosinophilic PNA but no infiltrates by imaging. Patient was started on steroids, bronchodilators and abx. Pulmonary consulted and appreciate their input. ABPA and IgE level ordered. Pertussis ordered given the severity of the cough. Immunoglobulin levels were normal. Eosinophilia resolved as expected with steroids. Doubtful he had pneumonia given that he was on amoxicillin for almost 10 days prior to admission and chest x-ray was clear.? Rocephin stopped but azithromycin continued to cover for atypicals.? WBC 14.8K but peaked at 26K felt related to steroids. WBC trended down. Tachycardia noted on admission but probably persistent because of his albuterol treatment. Tachycardia has resolved. Echo showing EF>70% with diastolic dysfunction. CT chest showing no acute findings. Hypoxia resolved. Solu-Medrol changed to Prednisone. Apnea link on room air showing he spent 329min with SpO2<88%. This resolved with repeat ApneaLink on 2L. Patient with possible asthma/COPD overlap syndrome.?Patient with HTN.? He is on a beta-aramis which could be contributing to his worsening asthmatic symptoms so this was stopped. Lisinopril can also cause chronic cough so this was also stopped. He was started on diltiazem and Losartan added later. Blood pressure remained well controlled. He had clinical improvement and was able to be discharged home on 12/18/23. He will be set up for home O2 at night and with naps. Home O2 evaluation showed that he did not need O2 while awake. Status at Discharge Cognitive/behavioral status at discharge: stable Time Spent with Patient Time attestation: Total time spent providing and/or coordinating discharge services: 37 minutes Time spent: Greater than 30 minutes Exam Narrative: AF 97.9 136/75 100 18 96% RA Gen - NARD Chest - scattered rhonchi, nml RR CV - RRR. S1-S2 Abd - soft, NT/ND, +BS Ext - no pedal edema Psych - normal mood and affect. Skin - warm and dry. DS: Data Data Completed and Pending Labs on day of discharge: Labs from last 24 hours 12/18/23 06:19 WBC 19.0 H RBC 4.75 Hgb 14.5 Hct 43.1 MCV 90.7 MCH 30.5 MCHC 33.6 RDW 12.6 Plt Count 252 MPV 9.6 Immature Gran % (Auto) 2.4 H Neut % (Auto) 73.8 H Lymph % (Auto) 13.0 L Grundy % (Auto) 10.4 H Eos % (Auto) 0.0 Baso % (Auto) 0.4 Lymph # (Auto) 2.48 Grundy # (Auto) 2.0 H Eos # (Auto) 0.0 Baso # (Auto) 0.1 Abs Immat Gran (auto) 0.45 H Absolute Neuts (auto) 14.0 H Absolute Nucleated RBC 0.0 Nucleated RBC % 0.0 Preliminary micro results at discharge 12/15/23 03:41 Blood Culture - Preliminary Blood 12/15/23 03:41 Blood Culture - Preliminary Blood Discharge Plan Discharge Attending physician on discharge: Thomas Mcnamara Consulting [facility]
[2023-12-22 02:27] LABS: Aspergillus Fumigatus K/UL <0.10 (<0.10); Conventional Class 0 (0)
[2023-12-23 01:37] LABS: Immunoglobulin E 144 kU/L (<=114)
--- NOTE | 2023-12-28 08:25 | PC.NURSE ---
Apsergillus AB elevated at 144.0 IgE is elevated at [address] Anders bhat.
--- NOTE | 2024-01-03 08:03 | PC.NURSE ---
Aspergillus AB results faxed to Dr. Herzog. Dr. Mcnamara aware of findings.
== END 2023-12-18 13:45 | disposition home or self-care (01) | DRG 198 ==
LOC: ANHED 04:09 → ANH3MEDSUR 06:49
PROVIDERS: Internal Medicine Pulmonary Disease; Admitting Provider Internal Medicine; Emergency Provider Emergency Medicine; Visit Provider Internal Medicine
DX: B44.81 Allergic bronchopulmonary aspergillosis (principal); R09.02 Hypoxemia; J44.9 Chronic obstructive pulmonary disease, unspecified; D72.10 Eosinophilia, unspecified; I10 Essential (primary) hypertension; Z20.822 Contact with and (suspected) exposure to COVID-19; Z87.891 Personal history of nicotine dependence
CPT/HCPCS: 36415; 71046; 71250; 80048; 80053; 82784; 82785; 83735; 83880; 84145; 85025; 85380; 86001; 86003; 86606; 87040; 87637; 87798; 93005; 93306; 94618; 94640; 94762; 96365; 96375; 99285; A9270; J0456; J0696; J1100; J1650; J1885; J2920; J2930; J3475; J7030; J7512

== ENCOUNTER 2024-01-18 09:16 | Outpatient (CLI) | payer BC, SELFPAY ==
[2024-01-18 11:04] LABS: Basophils Absolute Auto 0.2 K/mm3 (0.0-0.1); Basophils Percent Auto 1.4 % (0.2-1.2); Eosinophils Absolute Auto 0.6 K/mm3 (0-0.3); Eosinophils Percent Auto 5.8 % (0-4.4); Hematocrit 43.8 % (42.0-52.0); Hemoglobin 14.7 g/dL (14.0-18.0); Immature Granulocyte Absolute 0.32 K/mm3 (0.00-0.031); Lymphocytes Percent Auto 27.4 % (18.3-44.2); Mean Corpuscular HGB Conc 33.6 g/dl (32-36); Mean Corpuscular Hemoglobin 30.2 pg (26-34); Mean Corpuscular Volume 89.9 fl (80-100); Mean Platelet Volume 9.3 fl (7.4-10.4); Monocytes Absolute Auto 1.2 K/mm3 (0.1-0.6); Neutrophils Absolute Auto 5.5 K/mm3 (1.3-6.7); Neutrophils Percent Auto 51.4 % (45.5-73.1); Platelet Count Result 262 k/mm3 (150-375); Red Blood Count 4.87 M/mm3 (4.6-6.20); White Blood Count 10.6 K/mm3 (4.5-10.0)
--- NOTE | 2024-01-18 17:41 | WPDPFTINT ---
PFT Procedure Performed PFT Procedure Performed Spirometry with Pre/Post Bronchodilator Plethysmography (Lung Vol) Diffusing Cap (DLCO) Flow Vol Loop PFT Interpretation This is a pulmonary function test with pre and post-bronchodilator spirometry, plethysmography and diffusing capacity. The test was performed and results interpreted in accordance with the 2019 and 2005 ATS/ERS Task Force guidelines respectively using the Global Lung Function Initiative-2012 reference equations. Patient demonstrated good effort and cooperation. Reproducibility criteria were met. The quality of the pre bronchodilator spirometry maneuver was Grade A and post bronchodilator spirometry maneuver was Grade A. Findings: Spirometry: The contour the inspiratory and expiratory flow tracing are normal. The pre bronchodilator FVC is 4.05 L, 103% predicted. The pre bronchodilator FEV1 is 2.94 L, 95% predicted. The pre bronchodilator FEV1: FVC ratio 72%. The post bronchodilator FVC is 3.95 L, representing a 3% decrease. The post bronchodilator FEV1 is 2.91 L, representing 1% decrease. The post bronchodilator FEV1: FVC ratio is 74%. Plethysmography: The total lung capacity is 5.94 L, 99% predicted. The functional residual capacity is 2.79 L, 93% predicted. The residual volume is 1.88 L, 98% predicted. Diffusing capacity: The diffusing capacity unadjusted for hemoglobin and carboxyhemoglobin is 21.4, 80% predicted. The diffusing capacity adjusted for alveolar volume is 4.39, 96% predicted. Impression: The spirometry is normal without evidence of an obstructive abnormality. There is no significant improvement after inhaling a single dose of albuterol. The lung volumes are normal. The diffusing capacity is normal. There are no prior studies for comparison
[2024-01-23 21:27] LABS: Aspergillus Fumigatus K/UL <0.10 (<0.10); Conventional Class 0 (0)
== END 2024-01-18 09:17 | disposition home or self-care (01) ==
PROVIDERS: Visit Provider Internal Medicine Pulmonary Disease
DX: J45.909 Unspecified asthma, uncomplicated (principal); D72.10 Eosinophilia, unspecified
CPT/HCPCS: 36415; 85025; 86003; 94060; 94726; 94729

== ENCOUNTER 2024-04-04 13:17 | Outpatient (CLI) | payer BC, SELFPAY ==
--- NOTE | ~2024-04-04 | CT_ITS ---
EXAMINATION: CT sinus wo con DATE: 04/04/2024 14:03 INDICATION: Chronic sinusitis TECHNIQUE: Computed tomography (CT) of the paranasal sinuses was performed without contrast. Iterativ e reconstruction technique was employed. Exam dose: 389.92 mGy-cm total exam DLP. COMPARISON: None FINDINGS: Mild rightward bowing of the nasal septum. There is symmetric prominent soft tissue swellin g of the nasal turbinates. The ostiomeatal units are patent. There is mild patchy soft tissue thickening of the ethmoid air cells. The frontal, maxillary and sphe noid sinuses are clear with the exception of minimal mucoperiosteal thickening in the lower maxillary sinuses, left greater than right. There is mild patchy soft tissue thickening in the ethmoid septae. The mastoid air cells are normally developed and aerated. IMPRESSION: Mild rightward bowing of nasal septum. Symmetric mildly prominent soft tissue swelling of the nasal turbinates Mild patchy soft tissue thickening in the ethmoid air cells and minimal mucoperiosteal thickening of the lower aspect of the maxillary sinuses Reviewed, dictated and finalized at [facility]. Reviewed, dictated and finalized at [facility]. IMPRESSION: Mild rightward bowing of nasal septum. Symmetric mildly prominent soft tissue swelling of the nasal turbinates Mild patchy soft tissue thickening in the ethmoid air cells and minimal mucoper iosteal thickening of the lower aspect of the maxillary sinuses
== END 2024-04-04 13:18 | disposition home or self-care (01) ==
PROVIDERS: Visit Provider Internal Medicine Pulmonary Disease
DX: J32.9 Chronic sinusitis, unspecified (principal); J34.89 Other specified disorders of nose and nasal sinuses
CPT/HCPCS: 70486